=== PATIENT | female | born 1980 ===

== ENCOUNTER → 2019-02-27 | Outpatient (CLI) | payer OTHER ==
[~2019-02-27] MED LIST: Dilantin 100 m100 MG PO; MINO100 PO; NAPR500 PO; Norco 5-325 Ta1 EACH PO; PHENY100ER PO
[2019-03-01 17:06] LABS: HPV 16 Negative (Negative); HPV 18 Negative (Negative); HPV OTHER HR TYPES Negative (Negative)
== END | disposition home or self-care (01) ==
LOC: LAB SRC 17:10 → LAB SHORT 17:10
PROVIDERS: Nurse Practitioner Family
DX: Z01.419 Encounter for gynecological examination (general) (routine) without abnormal findings (principal)
CPT/HCPCS: 87624; G0123

== ENCOUNTER 2019-05-06 05:03 | Day surgery (SDC) | payer SELFPAY | END 2019-05-06 22:39 | disposition home or self-care (01) | LOC: MOI US 05:03 → MOI MAM 07:30 → MOI US 07:30 | PROC: 0HBT3ZX Excision of Right Breast, Percutaneous Approach, Diagnostic (ICD-10-PCS; principal; 2019-05-06) | DX: D24.1 Benign neoplasm of right breast (principal) | CPT/HCPCS: 19083; 77065; 88305; A4648 ==

== ENCOUNTER → 2023-09-20 | Outpatient (CLI) | payer OTHER ==
[2023-09-25 14:09] LABS: HPV 16 Negative (Negative); HPV 18 Negative (Negative); HPV OTHER HR TYPES Negative (Negative)
== END ==
LOC: LAB 13:48 → LAB SHORT 13:48
PROVIDERS: Registered Nurse Community Health
DX: Z12.4 Encounter for screening for malignant neoplasm of cervix (principal)
CPT/HCPCS: 87624; G0145

== ENCOUNTER 2025-03-26 06:15 | Day surgery (SDC) | payer OTHER ==
[~2025-03-26] VITALS: Ht 157.5 cm; Wt 65.5 kg
[2025-03-26] MEDS ORDERED: propofoL 50 ML IV ONE (07:39)
[2025-03-26] MEDS ORDERED: Lactated Ringer's 1,000 ML IV ONE ×2 (07:40→07:45)
--- NOTE | 2025-03-26 09:01 | NUR ---
03/26/25 0900 Tony Bryant BOOM MASTER AT BEDSIDE TO TRANSLATE FOR [facility]ZE[facility] SPEAKING PATIENT. PT STATES SHE HAS A 15 YR OLD THAT IS BI-[employer]INGUAL THAT WILL BE ABLE TO RE-ASSESS DISCHARGE INSTRUCTIONS ONCE DISCHARGED. PT, BOOM MASTER, AND RN WENT OVER DISCHARGE INSTRUCTIONS TOGETHER, QUESTIONS ENCOURAGED AND ANSWERED.
[2025-03-26 09:05] VITALS: BP 137/94
== END 2025-03-26 09:11 | disposition home or self-care (01) ==
LOC: ORSCSDS 06:15
PROVIDERS: Internal Medicine Gastroenterology
PROC: 0DB98ZX Excision of Duodenum, Via Natural or Artificial Opening Endoscopic, Diagnostic (ICD-10-PCS; principal; 2025-03-26 08:00)
PROC: 0DB78ZX Excision of Stomach, Pylorus, Via Natural or Artificial Opening Endoscopic, Diagnostic (ICD-10-PCS; principal; 2025-03-26 08:00)
DX: R11.2 Nausea with vomiting, unspecified (principal); K29.70 Gastritis, unspecified, without bleeding; B96.81 Helicobacter pylori [H. pylori] as the cause of diseases classified elsewhere; R74.8 Abnormal levels of other serum enzymes; Z13.1 Encounter for screening for diabetes mellitus; Z79.899 Other long term (current) drug therapy
CPT/HCPCS: 36415; 80053; 80061; 82784; 83036; 86015; 86038; 86039; 86364; 86381; 88305; 88341; 88342; J2704; J7120